=== PATIENT | female | born 1990 | race Native Hawaiian/Other Pacific Islander ===

== ENCOUNTER 2020-11-19 20:08 | Inpatient (IN) ==
[2020-11-19] MEDS ORDERED: Buffered Lidocaine 1% SYRIN 1 ml INTRADERM ONE (20:54)
[2020-11-19] MEDS ORDERED: Lactated Ringers 1000 ml BAG 1,000 ML IV ONE (20:54)
[2020-11-19] MEDS ORDERED: Lactated Ringers 1000 ml BAG 1,000 ML IV SCH (21:00)
[2020-11-19 21:57] LABS: Urine Benzodiazepine Screen None Detected (None Detect); Urine Cannabinoids Screen None Detected (None Detect); Urine Opiates Screen None Detected (None Detect)
[2020-11-19 23:57] LABS: ABS Lymphocytes 1.7 10^3/ul (1.0-4.8); ABS Monocytes 0.7 10^3/ul (0-0.8); ABS Neutrophils 9.3 10^3/ul (1.5-7.7); Eosinophil % 0.2 %; Hematocrit 38 % (35-47); Hemoglobin 13.3 g/dL (12.0-16.0); Lymphocyte % 14.1 %; Mean Corpuscular HGB Conc 35 g/dL (31-36); Mean Corpuscular Hemoglobin 32 pg (27-31); Mean Corpuscular Volume 91 fL (80-97); Mean Platelet Volume 11.4 fL (7.4-10.4); Nucleated Red Blood Cells % 0.2; Platelet Count 132 10^3/uL (150-450); Red Blood Count 4.22 10^6 /uL (3.70-4.87); Red Cell Distribution Width 15 % (10-15); White Blood Count 11.7 10^3/uL (3.5-10.8)
[2020-11-20] MEDS ORDERED: OBEPIDURAL 250 ML EPIDURAL ONE (02:56)
[2020-11-20 04:21] LABS: Urine Appearance Clear; Urine Bilirubin Negative (Negative); Urine Blood Negative (Negative); Urine Color Yellow; Urine Glucose Negative (Negative); Urine Ketones 1+ (Negative); Urine Nitrite Negative (Negative); Urine Protein Negative (Negative); Urine Specific Gravity 1.005 (1.002-1.030); Urine Urobilinogen Negative (Negative)
[2020-11-20] MEDS ORDERED: Phenylephrine 40 mcg/mL 10mL (400mcg) SYRINGE IV PUSH PRN (04:53)
[2020-11-20] MEDS ORDERED: Sodium Citrate/Citric Acid LIQ 15 ML UDC PO PRN (04:53)
[2020-11-20] MEDS ORDERED: OBEPIDURAL 250 ML EPIDURAL SCH (05:00)
[2020-11-20] MEDS ORDERED: Lidocaine 2% w/ EPI 1:200,000 MPF 20 ML SDV VIAL ONE (19:16)
[2020-11-20] MEDS ORDERED: ceFOXitin 2 GM IVPREMIX 2 GM/50 ML BAG ONE (19:36)
[2020-11-20] MEDS ORDERED: fentaNYL 100 mcg/2 ml 50 MCG/ML VIAL ONE (19:43)
[2020-11-20] MEDS ORDERED: Morphine PF AMP (0.5MG/ML) 5 MG/10 ML AMP ONE (19:43)
[2020-11-20] MEDS ORDERED: ceFOXitin 2 GM IVPREMIX 2 GM/50 ML BAG IVPB SCH (20:00)
[2020-11-20] MEDS ORDERED: Phenylephrine 40 mcg/mL 10mL (400mcg) SYRINGE ONE (20:00)
[2020-11-20] MEDS ORDERED: Oxytocin 10 UNITS/ML 1 ML VIAL ONE (20:13)
[2020-11-20] MEDS ORDERED: Witch Hazel PAD JAR TOPICAL PRN (21:46)
[2020-11-20] MEDS ORDERED: Glycerin ADULT 2.4 gm SUPP PR PRN (21:46)
[2020-11-20] MEDS ORDERED: Dibucaine 1% OINT 28.35 GM TUBE PR PRN (21:46)
[2020-11-20] MEDS ORDERED: Lactated Ringers 1000 ml BAG 1,000 ML IV SCH (22:00)
[2020-11-21 07:35] LABS: Hematocrit 29 % (35-47); Hemoglobin 10.4 g/dL (12.0-16.0); Mean Corpuscular HGB Conc 36 g/dL (31-36); Mean Corpuscular Hemoglobin 33 pg (27-31); Mean Corpuscular Volume 90 fL (80-97); Red Blood Count 3.19 10^6 /uL (3.70-4.87); Red Cell Distribution Width 15 % (10-15); White Blood Count 14.3 10^3/uL (3.5-10.8)
[2020-11-21 08:32] LABS: ABS Basophils 0.1 10^3/ul (0-0.2); ABS Eosinophils 0.1 10^3/ul (0-0.6); ABS Lymphocytes 1.6 10^3/ul (1.0-4.8); ABS Monocytes 0.5 10^3/ul (0-0.8); ABS Neutrophils 12.1 10^3/ul (1.5-7.7); Eosinophil % 0.4 %; Large Platelets Present; Lymphocyte % 10.9 %; Mean Platelet Volume 10.9 fL (7.4-10.4); Platelet Count 90 10^3/uL (150-450)
[2020-11-23 09:24] VITALS: BP 133/73
== END 2020-11-23 14:51 | disposition home or self-care (01) ==
LOC: MCHOBOUT 20:08 → MCHOB 20:55
PROVIDERS: ADMIT Obstetrics & Gynecology; ATTEND Obstetrics & Gynecology